=== PATIENT | female | born 1980 | race Caucasian/White ===

== ENCOUNTER 2021-02-13 19:34 | Emergency (ER) | payer OTHER ==
[~2021-02-13] VITALS: Ht 157.5 cm; Wt 95.3 kg
[~2021-02-13 19:34] MED LIST: MEDROLDOSEPACK PO; VENTOLIN HFA 1818 GM INH; VYVANSE70 MG PO; ZOLOFT100 MG PO; ZOLOFT50 MG PO
[2021-02-13 19:43] VITALS: BP 120/69
[2021-02-13] MEDS ORDERED: DOXYCYCLINE 10100 MG PO (19:44)
[2021-02-13] MEDS ORDERED: ABILIFY 5 MG TAB5 M1 PO (19:46)
[2021-02-13] MEDS ORDERED: BRINTELLIX10 MG PO (19:46)
[2021-02-13] MEDS ORDERED: ADDERALL 10 MG10 MG PO (19:46)
== END 2021-02-13 19:53 | disposition home or self-care (01) ==
LOC: M.ERS 19:34
DX: L03.032 Cellulitis of left toe (principal); Z88.2 Allergy status to sulfonamides